=== PATIENT | female | born 1950 | race Two or more races ===

== ENCOUNTER 2018-07-21 14:20 | Outpatient (CLI) | payer OTHER | END 2018-07-21 14:25 | disposition home or self-care (01) | LOC: NUCLEAR 14:20 | DX: M81.0 Age-related osteoporosis without current pathological fracture (principal) ==

== ENCOUNTER → 2018-07-21 | Outpatient (CLI) | payer OTHER | END | disposition home or self-care (01) | LOC: MAMO-SONO 13:15 | DX: Z12.31 Encounter for screening mammogram for malignant neoplasm of breast (principal); Z87.898 Personal history of other specified conditions; N60.11 Diffuse cystic mastopathy of right breast; N60.12 Diffuse cystic mastopathy of left breast ==

== ENCOUNTER 2021-11-05 10:50 | Outpatient (CLI) | payer OTHER | END 2021-11-05 10:56 | disposition home or self-care (01) | LOC: NUCLEAR 10:50 | DX: M81.0 Age-related osteoporosis without current pathological fracture (principal) ==

== ENCOUNTER 2021-11-05 10:58 | Outpatient (CLI) | payer OTHER | END 2021-11-05 11:01 | disposition home or self-care (01) | LOC: MAMO-SONO 10:58 | DX: Z12.31 Encounter for screening mammogram for malignant neoplasm of breast (principal); N60.11 Diffuse cystic mastopathy of right breast ==

== ENCOUNTER → 2023-11-10 11:31 | Outpatient (CLI) | payer OTHER | END | disposition home or self-care (01) | LOC: NUCLEAR 11:30 | PROVIDERS: ATTEND Obstetrics & Gynecology | DX: M81.0 Age-related osteoporosis without current pathological fracture (principal) ==

== ENCOUNTER 2023-11-10 16:08 | Outpatient (CLI) | payer OTHER | END 2023-11-10 16:19 | disposition home or self-care (01) | LOC: MAMO-SONO 16:08 | PROVIDERS: ATTEND Obstetrics & Gynecology | DX: N60.11 Diffuse cystic mastopathy of right breast (principal); Z12.31 Encounter for screening mammogram for malignant neoplasm of breast ==